=== PATIENT | female | born 1995 ===

== ENCOUNTER 2020-03-24 13:15 | Inpatient (IN) | payer BC ==
[~2020-03-24 13:15] MED LIST: Bupivacaine HCl 0.5%/Epinephrine 1:200,000/PF 30 ml Vial ONE; Bupivacaine/Epinephrine 0.25% 30 ML VIAL ONE; Lidocaine 2% MPF 10 ML AMP (For Epidural Use) ONE
[2020-03-24 13:55] VITALS: BMI 27.1
[2020-03-24] MEDS ORDERED: Ibuprofen 800 MG TAB PO PRN (15:09)
[2020-03-24] MEDS ORDERED: Promethazine HCl 25 MG/ML VIAL IM PRN ×2 (15:09→20:36)
[2020-03-24] MEDS ORDERED: Ondansetron PF 4 MG/2 ML Vial IVP PRN ×2 (15:09→20:36)
[2020-03-24] MEDS ORDERED: Misoprostol 200 MCG TAB PR PRN (15:09)
[2020-03-24] MEDS ORDERED: NS / Oxytocin 40 units/1000ml 1,000 ML IV PRN (15:09)
[2020-03-24] MEDS ORDERED: hydrALAZINE 20 MG/ML VIAL SLOW IVP PRN (15:09)
[2020-03-24] MEDS ORDERED: HYDROcodone/Acetaminophen 5/325 mg Tablet PO PRN ×2 (15:09)
[2020-03-24] MEDS ORDERED: Lactated Ringer's 1,000 ML IV PRN (15:09)
[2020-03-24] MEDS ORDERED: Lidocaine 1% (PF) 30 ML VIAL SC PRN (15:09)
[2020-03-24] MEDS ORDERED: NS w/ Oxytocin 10 units 500 ML IV SCH (15:15)
[2020-03-24] MEDS: Lactated Ringer's 1,000 ML IV SCH ×3 (15:59→23:50)
[2020-03-24] MEDS: Butorphanol Tartrate 1 MG/ML VIAL SLOW IVP PRN ×2 (16:18→17:19)
[2020-03-24 16:29] LABS: Hemoglobin 12.4 g/dL (12.0-16.0); Mean Corpuscular HGB CONC 33.9 g/dL (32.0-36.0); Mean Corpuscular Hemoglobin 31.4 pg (27.0-31.0); Mean Corpuscular Volume 92.7 fL (78.0-98.0); Mean Platelet Volume 10.7 fL (7.4-10.4); Platelet Count 194 thou/uL (130-400); RBC Distribution Width 11.9 % (11.5-14.5); Red Blood Cell (RBC) Count 3.95 mill/uL (4.20-5.40); White Blood Cell (WBC) Count 10.7 thou/uL (4.8-10.8)
[2020-03-24 17:11] LABS: HBSAg Index 0.14 S/CO (0-0.99); Hep B Surf Ag Non-Reactive S/CO (NonReactive); Syphilis Antibody Nonreactive (Nonreactive); Syphilis Antibody Index 0.03 S/CO (<1.00 Non-Reactive)
--- NOTE | 2020-03-24 17:14 | PDOC.LDHP ---
Labor and Delivery H&P Chief complaint: contractions HPI: Patient has was woken up at 0330 with contractions. She labored at home until 0930 and came to [facility] for cervical exam. She was 2/90/-2. and told to go walking for several hours. at 1305 she decided to arrive to the hospital for evaluation, reporting contractions had gotten stronger and closer together. Denies ROM. Has some brownish bloody show. Current gestational age (weeks): 40 (2 days) Due date: 03/22/20 Dating criteria: first trimester ultrasound Grav: 1 Para: 0 Current complications: none Abnormal US findings: No Past Medical History: MTHFR heterozygous Current medications: pre- vitamins Previous surgical history: other ([place] teeth extraction) Allergies/Adverse Reactions: Allergies Allergy/AdvReac Type Severity Reaction Status Date / Time No Known Allergies Allergy Unverified 03/24/20 13:55 Social history: none - Physical Exam Vital signs reviewed and normal: yes General: breathing through contractions Lungs: nonlabored breathing Abdomen: gravid FHT: category 1 - Vaginal Exam cm dilated: 3 Effacement: 90% Station: -2 - OB Labs Blood type: B RH: positive Antibody Screen: negative HIV: negative RPR: negative HEPSAg: negative 1 hour GCT: negative GBS: negative Urine drug screen: negative Rubella: immune - Assessment L&D Assessment: term patient in labor (early latent labor) RODGER by US. - Plan Plan: admit to L&D, anesthesia consult for pain management (Patient originally desired low intervention but now desires IV pain medication.)
[2020-03-24] MEDS ORDERED: Fentanyl 4 mcg/Bup 0.1% Cadd 100 ML ONE (19:40)
[2020-03-24] MEDS ORDERED: Naloxone HCl 0.4 mg/ml Vial IVP PRN ×2 (20:36)
[2020-03-24] MEDS ORDERED: diphenhydrAMINE 50 MG/ML VIAL IVP PRN (20:36)
[2020-03-24] MEDS ORDERED: Acetaminophen 325 MG TAB PO PRN (20:36)
[2020-03-24] MEDS ORDERED: EPHEDRINE 25 MG/5 ML SYRINGE SLOW IVP PRN (20:36)
[2020-03-24] MEDS ORDERED: Lactated Ringer's 500 ML IV PRN (20:36)
[2020-03-24] MEDS ORDERED: Communication Order-Pharmacy FS SCH (20:45)
[2020-03-24] MEDS ORDERED: Calcium Carbonate 500 MG ChewTAB PO SCH ×2 (21:45→23:59)
[2020-03-25] MEDS ORDERED: Famotidine/PF 20 mg/2ml Vial SLOW IVP SCH (02:45)
[2020-03-25] MEDS ORDERED: Fentanyl 4 mcg/Bup 0.1% Cadd 100 ML ONE ×2 (03:49→11:23)
[2020-03-25] MEDS: Fentanyl 4 mcg/Bupivacaine 0.1% Cassette 100 ML EPIDURAL SCH ×2 (03:53→11:26)
[2020-03-25] MEDS: Lactated Ringer's 1,000 ML IV SCH (05:46)
[2020-03-25] MEDS ORDERED: NS / Oxytocin 40 units/1000ml 1,000 ML ONE (13:33)
[2020-03-25] MEDS ORDERED: Lidocaine 1% (PF) 30 ML VIAL ONE (13:33)
--- NOTE | 2020-03-25 13:42 | PDOC.LDPN ---
Labor & Delivery Progress Note - Subjective Subjective: comfortable (with an epidural) - Objective Vital signs reviewed and normal: yes General: resting Dilation: 4 Effacement: 100% Station: -1 FHT: category 1 AROM: clear fluid IUPC placed: yes - Assessment (1) Primigravida Code(s): Z34.00 - ENCNTR FOR SUPRVSN OF NORMAL FIRST , UNSP TRIMESTER Current Visit: Yes Status: Acute (2) 40 weeks gestation of Code(s): Z3A.40 - 40 WEEKS GESTATION OF Current Visit: Yes Status : Acute Plan: continue plan of care, pitocin for augmentation
[2020-03-25] MEDS ORDERED: Fentanyl 100 MCG/2 ML VIAL ONE (15:21)
--- NOTE | 2020-03-25 17:35 | PDOC.OPDEL ---
OB Operative/Delivery Note Delivery Dr/Surgeon: Wojciech Angelo Pre-Delivery Diagnosis: active labor Procedure/Post Delivery Dx: spontaneous vaginal delivery Weeks gestation: 40 Anesthesia: epidural - Findings A Sex: female Weight: 8 lb 3 oz - 1 min: 8 - 5 min: 9 - Additional Findings/Plan Placenta delivered: spontaneous Repaired Obstetrical Laceration: 2nd degree Estimated blood loss: 250 Post delivery plan: routine recovery
[2020-03-25] MEDS ORDERED: hydrALAZINE 20 MG/ML VIAL SLOW IVP PRN (18:51)
[2020-03-25] MEDS ORDERED: Lanolin Ointment 7 GM TUBE TOP PRN (18:51)
[2020-03-25] MEDS ORDERED: HYDROcodone/Acetaminophen 5/325 mg Tablet PO PRN ×2 (18:51)
[2020-03-25] MEDS ORDERED: Ondansetron PF 4 MG/2 ML Vial IVP PRN (18:51)
[2020-03-25] MEDS ORDERED: Misoprostol 200 MCG TAB VAG PRN (18:51)
[2020-03-25] MEDS ORDERED: Benzocaine-Menthol 82.5 ML CAN TOP PRN (18:51)
[2020-03-25] MEDS ORDERED: Bisacodyl 10 MG SUPP PR PRN (18:51)
[2020-03-25] MEDS ORDERED: NS / Oxytocin 40 units/1000ml 1,000 ML IV SCH (18:51)
[2020-03-25] MEDS ORDERED: Milk Of Magnesia 30 ML UDCUP PO PRN (18:51)
[2020-03-25] MEDS: Docusate Calcium (SURFAK) 240 MG CAP PO SCH (21:07)
[2020-03-25] MEDS: Ibuprofen 800 MG TAB PO SCH (21:07)
--- NOTE | 2020-03-26 05:32 | PDOC.PP ---
Post Progress Note Post Day #: 1 Subjective: Pt feeling well. . Lochia downtrending. Denies dysuria. Desires to go home today if possible. PO intake tolerated: yes Flatus: yes Ambulation: yes Vital Signs (12 hours) Temp Pulse Resp BP Pulse Ox 03/26/20 00:30 98.1 F 76 16 118/67 03/25/20 21:40 98.1 F 95 16 117/62 03/25/20 20:28 97.9 F 78 18 123/68 99 Weight Weight 67.132 kg - Physical Examination General: NAD Cardiovascular: no m/r/g, RRR Respiratory: clear to auscultation bilaterally Abdominal: + bowel sounds, appropriately TTP Fundus firm & at: 2 cm below umbilicus Neurological: no gross focal deficits Psychiatric: A&Ox3 Result Diagrams: 03/24/20 16:19 Additional Labs: Post Labs Blood Type B POSITIVE 03/24/20 17:52 Hep Bs Antigen Non-Reactive S/CO (NonReactive) 03/24/20 16:19 (1) 40 weeks gestation of Code(s): Z3A.40 - 40 WEEKS GESTATION OF Status: Acute (2) Primigravida Code(s): Z34.00 - ENCNTR FOR SUPRVSN OF NORMAL FIRST , UNSP TRIMESTER Status: Acute - Assessment/Plan 25 yo G1 now P1 s/p at term: PPD #1 2nd deg perineal lac repaired - routine cares - encourage ambulation - pain controlled w/ ibuprofen - possible PM evening discharge, awaiting labs at 24 hours of life.
[2020-03-26] MEDS: Ibuprofen 800 MG TAB PO SCH ×2 (05:49→14:19)
[2020-03-26] MEDS: Ferrous Sulfate 325 MG TAB PO SCH (07:09)
[2020-03-26] MEDS: Docusate Calcium (SURFAK) 240 MG CAP PO SCH (08:03)
[2020-03-26] MEDS ORDERED: Prenatal Vitamin 1 TAB PO SCH (09:00)
[2020-03-26] MEDS ORDERED: Adacel (T-DAP) 0.5 ML SYRINGE IM ONE (09:00)
[2020-03-26 12:35] VITALS: BP 106/56; TEMP 98.5
== END 2020-03-26 19:10 | disposition home or self-care (01) | DRG 807 ==
LOC: L&D/OP 13:15 → L&D 15:09 → 3SW 03-25 20:56
PROVIDERS: ADMIT Obstetrics & Gynecology; ATTEND Obstetrics & Gynecology
PROC: 10E0XZZ Delivery of Products of Conception, External Approach (ICD-10-PCS; principal; 2020-03-25)
PROC: 0KQM0ZZ Repair Perineum Muscle, Open Approach (ICD-10-PCS; 2020-03-25)
PROC: 10907ZC Drainage of Amniotic Fluid, Therapeutic from Products of Conception, Via Natural or Artificial Opening (ICD-10-PCS; 2020-03-25)
DX: O70.1 Second degree perineal laceration during delivery (principal); Z37.0 Single live birth; Z3A.40 40 weeks gestation of pregnancy
CPT/HCPCS: 36415; 51702; 85027; 86780; 86850; 86900; 86901; 87340; 99285; J0595; J0670; J2001; J2405; J2590; J3010; S0028